=== PATIENT | male | born 1965 | race Caucasian/White ===

== ENCOUNTER 2018-09-22 16:45 | Outpatient (CLI) | payer MEDICAID | END 2018-09-22 16:46 | disposition short-term general hospital (02) | LOC: EMS 16:45 | PROVIDERS: ATTEND Surgery | DX: T20.37XA Burn of third degree of neck, initial encounter (principal); T22.352A Burn of third degree of left shoulder, initial encounter; T21.21XA Burn of second degree of chest wall, initial encounter; W40.1XXA Explosion of explosive gases, initial encounter | CPT/HCPCS: A0425; A0427; A0999 ==